=== PATIENT | female | born 1975 ===

== ENCOUNTER 2025-05-18 12:27 | Emergency (ER) | payer BC ==
[~2025-05-18] VITALS: Ht 157.5 cm; Wt 81.6 kg
[2025-05-18 13:01] VITALS: BP 129/88; O2SAT 96
[2025-05-18] MEDS ORDERED: MONTELUKAST SODI4 M1 (13:03)
[2025-05-18] MEDS ORDERED: BREZTRI AEROS10.7 GM IH (13:03)
[2025-05-18] MEDS ORDERED: CLARITIN5 MG/5 ML (13:04)
[2025-05-18 15:38] LABS: BASO % 0.3 % (0.1-1.2); EOS # 0.11 (0.04-0.54); EOS % 0.7 % (0.7-7.0); LYMPH # 2.51 (1.18-3.74); LYMPH % 16.2 % (19.3-53.1); MEAN PLATELET VOLUME 11.00 fl (9.4-12.4); MONO # 0.95 (0.24-0.82); MONO % 6.1 % (4.7-12.5); NEUT # 11.72 (1.56-6.13); NEUT % 75.8 % (34.0-71.1); RED CELL DISTRIBUTION WIDTH 13.6 % (11.6-14.4)
[2025-05-18 15:58] LABS: ALT/SGPT 163.0 U/L (12-78); AST/SGOT 76.0 U/L (15-37); BILIRUBIN TOTAL 0.45 mg/dL (0.3-1.2); BUN CREA RATIO 15.0 (7.0-25.0); CREATININE SERUM 0.67 mg/dL (0.55-1.02); GFR 93.94; GLOBULINA 4.9 G/DL (2.4-3.5); GLUCOSE FASTING 102.0 mg/dL (65-100); OSMOLALITY SERUM 279.0 MOSM/KG (275-295)
[2025-05-18 16:49] LABS: COVID-19 AG NEGATIVE (NEGATIVE)
[2025-05-18] MEDS ORDERED: ZITHROMAX500 MG PO (17:12)
[2025-05-18] MEDS ORDERED: TUSNEL LIQUID178 ML PO (17:12)
[2025-05-18] MEDS ORDERED: CEFTRIAXONE SODIUM 1,000 MG VIAL IM ONE (17:15)
[2025-05-18] MEDS ORDERED: GUAIFENESIN/DEXTROMETHORPHAN 100MG/10ML BLIST.PACK PO ONE (17:15)
[2025-05-18] MEDS ORDERED: KETOROLAC TROMETHAMINE 60 MG VIAL IM ONE (17:15)
== END 2025-05-18 17:48 | disposition home or self-care (01) ==
LOC: ER 15:47
PROVIDERS: Preventive Medicine Public Health & General Preventive Medicine
DX: J06.9 Acute upper respiratory infection, unspecified (principal); Z20.822 Contact with and (suspected) exposure to COVID-19